=== PATIENT | male | born 1965 | race Caucasian/White ===

== ENCOUNTER 2019-04-12 18:34 | Emergency (ER) | payer OTHER ==
[~2019-04-12] VITALS: Ht 170.2 cm; Wt 74.8 kg
--- NOTE | 2019-04-12 18:46 | NUR ---
FB stuck in his penis (cock ring stuck); been trying to remove it whole
[2019-04-12] MEDS ORDERED: FENTANYL PF 100MCG/2ML AMPUL ONE (18:55)
[2019-04-12] MEDS: IV NS 0.9% 1,000 ML BAG IV ONE (19:05)
[2019-04-12] MEDS: FENTANYL PF 100MCG/2ML AMPUL IV ONE (19:05)
[2019-04-12 19:13] LABS: BASOPHILS # (AUTO) 0.1 /CMM (0.0-0.2); BASOPHILS % (AUTO) 0.7 % (0.0-2.0); EOSINOPHILS % (AUTO) 0.6 % (0.0-6.0); HEMATOCRIT 44 % (39-51); LYMPHOCYTES # (AUTO) 2.1 /CMM (0.8-4.8); LYMPHOCYTES % (AUTO) 20.5 % (20.0-44.0); MEAN CORPUSCULAR HGB CONC 34 g/dl (31.0-36.0); MEAN CORPUSCULAR VOLUME 93 fL (80-96); MONOCYTES # (AUTO) 0.8 /CMM (0.1-1.30); MONOCYTES % (AUTO) 7.4 % (2.0-12.0); NEUTROPHILS # (AUTO) 7.2 /CMM (1.8-8.9); NEUTROPHILS % (AUTO) 70.8 % (43.0-81.0); PLATELET COUNT (AUTO) 267 /CMM (150-450); RED BLOOD CELL COUNT(AUTO) 4.69 MIL/uL (4.5-6.0); WHITE BLOOD COUNT (AUTO) 10.2 K/uL (4.3-11.0)
[2019-04-12 19:21] LABS: CREATININE 0.8 mg/dL (0.6-1.3); POTASSIUM 3.6 mmol/L (3.5-5.1)
[2019-04-12 21:44] LABS: CALCIUM, SERUM 8.5 mg/dL (8.5-10.1); CREATININE 0.8 mg/dL (0.6-1.3); POTASSIUM 3.2 mmol/L (3.5-5.1)
[2019-04-12 23:00] VITALS: BP 140/90
--- NOTE | 2019-04-12 23:08 | NUR ---
Patient discharged to home in stable condition. Written and verbal after care instructions given. Patient verbalizes understanding of instruction. IV removed. Catheter intact and site benign. Pressure and 4x4 applied to site. No bleeding noted.
== END 2019-04-12 23:11 | disposition home or self-care (01) ==
LOC: ER 18:46
DX: N48.30 Priapism, unspecified (principal); Z60.2 Problems related to living alone; W45.8XXA Other foreign body or object entering through skin, initial encounter; Y93.89 Activity, other specified; Y92.89 Other specified places as the place of occurrence of the external cause; Y99.8 Other external cause status
CPT/HCPCS: 36415; 80048 ×2; 82550 ×2; 83605; 85025; 96374; 99284; J3010

== ENCOUNTER 2020-11-23 11:29 | Emergency (ER) | payer OTHER ==
[~2020-11-23] VITALS: Ht 172.7 cm; Wt 63.5 kg
[2020-11-23 11:40] VITALS: BP 143/87
--- NOTE | 2020-11-23 11:53 | NUR ---
PENILE RING REMOVED BY [employer] INSTALLER.
--- NOTE | 2020-11-23 12:02 | NUR ---
Patient discharged to home in stable condition. Written and verbal after care instructions given. Patient verbalizes understanding of instruction.
== END 2020-11-23 12:02 | disposition home or self-care (01) ==
LOC: ER 11:36
DX: S30.852A Superficial foreign body of penis, initial encounter (principal); Z60.2 Problems related to living alone; Z59.0 Homelessness; X58.XXXA Exposure to other specified factors, initial encounter; Y93.89 Activity, other specified; Y92.89 Other specified places as the place of occurrence of the external cause; Y99.8 Other external cause status

== ENCOUNTER 2020-12-05 21:48 | Emergency (ER) | payer OTHER ==
[~2020-12-05] VITALS: Ht 167.6 cm; Wt 65.8 kg
--- NOTE | 2020-12-05 22:01 | NUR ---
bibself c/o L leg pain, knee swelling s/p trip and fall 3 days ago. denies head injury denies LOC denies chest pain, breathing even and unlabored, hook to monitor and spox will cont to monitor
[2020-12-05] MEDS ORDERED: KETOROLAC TROMETHAMINE INJ 60 MG/2 ML VIAL IM ONE ×2 (22:08→22:30)
[2020-12-05] MEDS ORDERED: KETO10TA2 PO (22:58)
[2020-12-05 23:35] VITALS: BP 110/76
--- NOTE | 2020-12-05 23:35 | NUR ---
Patient discharged to home in stable condition. Written and verbal after care instructions given. Patient verbalizes understanding of instruction.Pt have knee immobilizer on left knee and crutches, exit to the ED
== END 2020-12-05 23:36 | disposition home or self-care (01) ==
LOC: ER 21:50
DX: M25.462 Effusion, left knee (principal); Z60.2 Problems related to living alone; Z59.0 Homelessness; W01.0XXA Fall on same level from slipping, tripping and stumbling without subsequent striking against object, initial encounter; Y93.89 Activity, other specified; Y92.89 Other specified places as the place of occurrence of the external cause; Y99.8 Other external cause status
CPT/HCPCS: 29505; 73700; 96372; 99284; J1885

== ENCOUNTER 2022-07-23 22:10 | Emergency (ER) | payer OTHER ==
[~2022-07-23] VITALS: Ht 167.6 cm; Wt 68.5 kg
[~2022-07-23 22:10] MED LIST: KETO10TA2 PO
--- NOTE | 2022-07-23 22:20 | NUR ---
TO ER BED 14. [id number] C/O GENITAL PAIN X 2 DAYS "HAS COCK RING STUCK". PT IS ALERT AND ORIENTED. RR EVEN AND NON LABORED. CONNECTED TO MONITOR. PENIS SWELLING NOTED. RING AT BASE OF PENIS.
[2022-07-23] MEDS ORDERED: LIDOCAINE 2% JEL UROJET 10 ML MM ONE ×2 (22:30)
[2022-07-23] MEDS ORDERED: HYDROMORPHONE 1 MG/1 ML DISP.SYRIN IM ONE (22:30)
[2022-07-23] MEDS ORDERED: HYDROMORPHONE 1 MG/1 ML DISP.SYRIN ONE (22:30)
--- NOTE | 2022-07-24 02:46 | NUR ---
Patient does not wish to proceed with medical care recommended by Dr. Nugent. Patient given information related to possible complications, up to and including , which could occur as a result of leaving the hospital at this time. Patient verbalizes understanding of risks involved due to leaving against medical advice. Patient has signed AMA form.
[2022-07-24 02:47] VITALS: BP 138/68
== END 2022-07-24 02:47 | disposition left against medical advice (07) ==
LOC: ER 22:18
DX: N48.31 Priapism due to trauma (principal); Z79.899 Other long term (current) drug therapy; Z60.2 Problems related to living alone; W45.8XXA Other foreign body or object entering through skin, initial encounter; Y93.89 Activity, other specified; Y92.89 Other specified places as the place of occurrence of the external cause; Y99.8 Other external cause status
CPT/HCPCS: 99284; 96372; 82962; J3490; J1170